=== PATIENT | female | born 1985 | race Caucasian/White ===

== ENCOUNTER 2022-08-17 17:17 | Outpatient (CLI) | payer BC, SELFPAY ==
[2022-08-17 17:46] VITALS: BP 112/63; PULSE 83
[2022-08-17 18:00] VITALS: BP 112/63; PULSE 96
--- NOTE | 2022-08-17 18:04 | PC.NURSE ---
1800- Spoke with Dr. lamb, rom plus negative. NST reactive. Orders to discharge to home.
== END 2022-08-17 18:04 | disposition home or self-care (01) ==
LOC: ANHOBOP 17:23 → ANHOBPP 17:27
PROVIDERS: PCP Family Medicine; Visit Provider Obstetrics & Gynecology
DX: O41.8X90 Other specified disorders of amniotic fluid and membranes, unspecified trimester, not applicable or unspecified (principal); Z3A.00 Weeks of gestation of pregnancy not specified
CPT/HCPCS: 59025; 84112; 99199

== ENCOUNTER 2022-09-21 10:10 | Outpatient (CLI) | payer BC, SELFPAY ==
[2022-09-21 10:46] LABS: Hematocrit 31.9 % (37.0-47.0); Hemoglobin 9.7 g/dL (12.0-15.0); Mean Corpuscular HGB Conc 30.4 g/dl (32-36); Mean Corpuscular Hemoglobin 23.9 pg (26-34); Mean Corpuscular Volume 78.6 fl (80-100); Mean Platelet Volume 10.4 fl (7.4-10.4); Platelet Count Result 401 k/mm3 (150-375); Red Blood Count 4.06 M/mm3 (4.2-5.4); Red Cell Distribution Width 14.6 % (11.5-14.5); White Blood Count 12.2 K/mm3 (4.5-10.0)
[2022-09-23 16:44] LABS: Rapid Plasma Reagin Non-Reactive (NonReactive)
== END 2022-09-21 10:11 | disposition home or self-care (01) ==
LOC: ANHLAB 10:13
PROVIDERS: PCP Family Medicine; Visit Provider Obstetrics & Gynecology
DX: Z01.818 Encounter for other preprocedural examination (principal)
CPT/HCPCS: 36415; 85027; 86592; 86850; 86900; 86901

== ENCOUNTER 2022-09-23 05:34 | Inpatient (IN) | payer BC, SELFPAY ==
[2022-09-23] VITALS (53 sets, daily range): BP systolic 93–129; BP diastolic 41–91; PULSE 56–130; RESP 13–18; TEMP 36.2–37.1; O2SAT 94–100; BMI 33.9
--- NOTE | 2022-09-23 05:35 | LDADM ---
This patient, Radha Moreau, was admitted to Labor/Delivery/Recovery 120 on 09/23/22 at 05:34. Plans for labor, pain management and were discussed with patient. Patient/family oriented to hospital policies and general routines including ID bracelet, bed and alarms, visiting hours, pain management, procedures, bathroom and other care routines, personal items, smoking policy, room service/diet and guest tray routines, security routines, and visiting hours. Patient/Family are encouraged to report perceived risks to care and to ask questions if they do not understand what they are told or what they should do. See OBIX for further documentation.
[2022-09-23] MEDS: LACTATED RINGERS 1,000 ML 125 ML IV CONT ×2 (06:32→07:20)
--- NOTE | 2022-09-23 07:24 | PM.IMHP ---
H&P: HPI History of Present Illness Date/Time: 09/23/22 07:24 Chief Complaint: Term Narrative: this patient is a 36-year-old multiparous female with a previous delivery who is 39 weeks gestation. She presents for repeat . We agreed to perform . She understands the risk. She understands injuries may occur as result of hospitalization, more surgery, and severe illness. She understands risk of hemorrhage and infection. She denies any nausea, vomiting, fever, chills. She denies any chest pain or shortness of breath Review of Systems Review of Systems: All systems reviewed & are unremarkable except as noted in HPI and below Constitutional: Constitutional: Denies chills, Denies fatigue, Denies fever(s) and Denies weakness Eyes: Eyes: Denies blurry vision, Denies change in vision, Denies loss of peripheral vision, Denies loss of vision, Denies other visual disturbances and Denies eye pain ENT: Denies vertigo, Denies dizziness, Denies hearing loss, Denies mouth pain, Denies nasal obstruction, Denies neck mass and Denies neck pain Cardiovascular: Cardiovascular: Denies chest pain, Denies diaphoresis, Denies syncope, Denies leg edema and Denies dyspnea Respiratory: Respiratory: Denies chest congestion, Denies cough, Denies hemoptysis, Denies dyspnea and Denies wheezing Gastrointestinal: Gastrointestinal: Denies abdominal pain, Denies constipation, Denies diarrhea, Denies nausea and Denies vomiting Genitourinary: Genitourinary: Denies hematuria, Denies change in libido, Denies nocturia, Denies genital lesions, Denies flank pain and Denies urinary urgency Musculoskeletal: Musculoskeletal: Denies abnormal gait, Denies back pain, Denies myalgias, Denies arthralgias, Denies joint swelling, Denies muscle weakness and Denies neck pain Integumentary/Breasts: Skin/Breast: Denies swelling, Denies breast pain, Denies breast mass, Denies dry skin, Denies nipple discharge, Denies unusual bruising and Denies jaundice Neurologic: Denies Neuro-related abnormal movements, Denies Abnormal speech present, Denies abnormal gait, Denies behavioral changes, Denies confusion, Denies vertigo, Denies dizziness, Denies syncope, Denies loss of vision, Denies memory loss, Denies convulsions and Denies weakness Psychiatric: Psychiatric: Denies abnormal sleep pattern, Denies behavioral changes, Denies change in libido, Denies confusion, Denies depression, Denies anhedonia and Denies memory loss Endocrine: Endocrine: Reports no additional endocrine complaints, Denies change in libido and Denies fatigue Hematologic/Lymphatic: Hematologic/Lymphatic: Reports no additional hematologic/lymphatic complaints Allergic/Immunologic: Allergic/Immunologic: Reports no additional allergic/immunologic complaints and Denies wheezing [facility] Family History Family History (Updated 09/17/22 @ 15:39 by Janell Carrasco RN) Mother Sarcoidosis of lung Social History Social History Smoking status: Former smoker Tobacco type: e-cigarettes/vaping Second hand tobacco smoke exposure: No Alcohol intake: current Substance use: never Lack of Transportation: No Lack of Food: Never True Current Housing: I Have Housing Concerned About Future Housing: No Difficulty Paying Gas/Electric Bills: No Difficulty Paying for Meds: No Currently Unemployed: No Education: Don't Know Difficulty w/ Childcare or Family Care: No Spiritual care concerns: No Meds Home Medications and Allergies Home Medications Medication Instructions Recorded Confirmed Type buspirone 7.5 mg tablet See Rx Instructions .Route 02/21/22 09/23/22 Rx .COMPLEX #120 tabs sertraline 100 mg tablet 100 mg PO DAILY #90 tabs 08/07/22 09/23/22 Rx Acid Drug Safety Physician (omeprazole) 20 mg PO DAILY 09/17/22 09/17/22 History Allergies Allergy/AdvReac Type Severity Reaction Status Date / Time No Known Allergies
--- NOTE | 2022-09-23 07:26 | WPDHPUPDATE1 ---
History and Physical Update Update Date/Time: 09/23/22 07:26 History and Physical has been reviewed, including an updated exam of the patient. There are NO changes in the patient's condition. Risks, benefits, and alternatives have been discussed and questions answered. Patient agrees to proceed with procedure.
[2022-09-23] MEDS: ceFAZolin 2 GM/D5W 50 ML 2 GM/50 ML BAG IVPB (07:33)
--- NOTE | 2022-09-23 07:33 | P.PNAN_ITS ---
Anes - Eval Pre Procedure Procedure: Operation Date: 09/23/22 07:30 Proposed Procedures p Repeat Section - Lorna Pichardo MD Date/Time: 09/23/22 07:33 Surgeon: Marino Preop Diagnosis: Previous C/S Pre Op Diagnosis: c/s Patient Data Age: 36 Gender: F Height: 1.65 m Weight: 92.5 kg Last Vital Signs Pulse 91 09/23/22 05:55 BP 127/91 H 09/23/22 05:55 Pulse Ox 98 09/23/22 06:20 O2 Del Method Room Air 09/23/22 06:33 Allergies Allergy/AdvReac Type Severity Reaction Status Date / Time No Known Allergies Allergy Verified 09/17/22 15:44 Home Medications Medication Instructions Recorded Confirmed Type buspirone 7.5 mg tablet See Rx Instructions .Route 02/21/22 09/23/22 Rx .COMPLEX #120 tabs sertraline 100 mg tablet 100 mg PO DAILY #90 tabs 08/07/22 09/23/22 Rx Acid Duplicating Machine Mechanic (omeprazole) 20 mg PO DAILY 09/17/22 09/17/22 History Patient hx anesthesia problems: none Family hx anesthesia problems: none Results Review: All pre-operative results and documents have been reviewed as part of the pre- operative evaluation. [facility], [facility] Family History Family History Mother Sarcoidosis of lung Social History Social History Smoking status: Former smoker Tobacco type: e-cigarettes/vaping Second hand tobacco smoke exposure: No Alcohol intake: current Substance use: never Lack of Transportation: No Lack of Food: Never True Current Housing: I Have Housing Concerned About Future Housing: No Difficulty Paying Gas/Electric Bills: No Difficulty Paying for Meds: No Currently Unemployed: No Education: Don't Know Difficulty w/ Childcare or Family Care: No Spiritual care concerns: No Exam Day of Procedure 09/23/22 07:33 Patient weight: normal Heart: regular rate and rhythm Lungs: clear to auscultation and normal air movement Airway: Mallampati scale class II Neurological: alert and oriented
[2022-09-23] MEDS: KETOROLAC 30 MG/ML VIAL (*BKC) IM (08:25)
--- NOTE | 2022-09-23 08:30 | W.PM.PROC2 ---
Procedure Note - Detailed Date of Procedure 09/23/22 Pre-op Diagnosis previous c/s Post-op Diagnosis Same Procedure Performed Low-transverse section Surgeon Lorna Pichardo MD Anesthesia Spinal Findings Normal gestational maternal anatomy, average size infant, normal Apgars. Description of Procedure The patient was taken the operating room. She was prepped and draped in dorsal supine position with a leftward tilt. This was done after spinal anesthetic was applied. A low-transverse skin incision was made and carried down till of the fascia with the knife. The fascial incision was made with the knife. The fascial incision was extended laterally with Tello scissors. The fascia was tented upward superiorly and inferiorly the rectus muscles were dissected off bluntly. The rectus muscles were the midline. The preperitoneal fat and peritoneum were dissected open bluntly at the superior aspect of the rectus muscles. The peritoneal incision was extended superior and inferior with good position of bladder. The uterine incision was made with a scalpel down to the level of the amniotic cavity. The amniotic cavity was entered bluntly. The was delivered. The cord was clamped and cut and the infant was handed off to waiting pediatric staff. Cord bloods were obtained. The placenta was removed manually. The uterus was exteriorized. The uterus was cleared of all clots, debris and membranes. The uterus was closed in 0 Vicryl running lock fashion. An imbricating over a was placed along the incision line as well. The uterus was returned to the abdomen. The gutters were cleared of all clots and debris. The fascia was closed with 0 Vicryl running fashion. The subcutaneous tissue was irrigated pinpoint bleeders were cauterized. The skin was closed with subcuticular absorbable gurpreet. The skin incision line was covered with glue. The patient tolerated the procedure well. She has taken recovery room in stable condition. Sponge lap and needle counts were correct x2. Complications No immediate complications Condition Stable Disposition PACU
[2022-09-23] MEDS: LACTATED RINGERS 1,000 ML 30 ML IV CONT (08:35)
[2022-09-23] MEDS: ONDANSETRON INJ 4 MG/2 ML VIAL IV PUSH ×2 (10:12→17:10)
[2022-09-23] MEDS: OXYTOCIN 30 UNITS/NS 500 ML 30 UNITS/500 ML BAG 125 UNITS IV CONT (10:19)
[2022-09-23] MEDS: fentaNYL CITRATE INJ (*CRX) 100 MCG/2 ML VIAL 50 MCG IV PUSH (12:17)
[2022-09-23] MEDS: SERTRALINE HCL 50 MG TABLET 100 MG PO (14:54)
[2022-09-23] MEDS: PANTOPRAZOLE 40 MG TABLET PO (14:55)
[2022-09-23] MEDS: DOCUSATE SODIUM 100 MG CAPSULE PO (14:55)
[2022-09-23] MEDS: LANOLIN (LANSINOH) 7.5 GM CREAM 1 APPLIC TOPICAL (14:56)
[2022-09-23] MEDS: MULTIVIT/MIN/PREN/FOL AC/IRON TABLET 1 TAB PO (14:56)
[2022-09-23] MEDS: KETOROLAC 30 MG/ML VIAL (*BKC) IV PUSH (15:05)
[2022-09-23] MEDS: DEXTROSE 5%/0.45% SOD CHL 1,000 ML 125 ML IV CONT (15:09)
[2022-09-23] MEDS: HYDROcodone/acetaminophen (*CRX) 5-325 MG TABLET 1 TAB PO (21:59)
[2022-09-23] MEDS: KCL 20 MEQ/D5/0.45% SOD CHL 1,000 ML 125 ML IV CONT (22:01)
[2022-09-24] MEDS: IBUPROFEN 600 MG TABLET PO ×4 (00:26→19:53)
[2022-09-24] MEDS: HYDROcodone/acetaminophen (*CRX) 5-325 MG TABLET 1 TAB PO ×3 (00:27→07:54)
[2022-09-24 04:38] VITALS: BP 115/71; PULSE 75; RESP 18; TEMP 36.7; O2SAT 99
[2022-09-24 04:54] LABS: Basophils Absolute Auto 0.1 K/mm3 (0.0-0.1); Basophils Percent Auto 0.4 % (0.2-1.2); Eosinophils Absolute Auto 0.1 K/mm3 (0-0.3); Eosinophils Percent Auto 0.5 % (0-4.4); Hematocrit 26.3 % (37.0-47.0); Immature Granulocyte Absolute 0.14 K/mm3 (0.00-0.031); Immature Granulocyte Percent A 1.1 % (0-0.5); Lymphocytes Absolute Auto 2.97 K/mm3 (0.9-3.2); Lymphocytes Percent Auto 22.5 % (18.3-44.2); Mean Corpuscular HGB Conc 30.4 g/dl (32-36); Mean Corpuscular Volume 78.7 fl (80-100); Mean Platelet Volume 10.2 fl (7.4-10.4); Monocytes Absolute Auto 0.8 K/mm3 (0.1-0.6); Monocytes Percent Auto 6.2 % (2.6-8.5); Neutrophils Absolute Auto 9.1 K/mm3 (1.3-6.7); Neutrophils Percent Auto 69.3 % (45.5-73.1); Platelet Count Result 359 k/mm3 (150-375); Red Blood Count 3.34 M/mm3 (4.2-5.4); Red Cell Distribution Width 14.6 % (11.5-14.5); White Blood Count 13.2 K/mm3 (4.5-10.0)
[2022-09-24 07:55] VITALS: BP 100/55; PULSE 76; RESP 16; TEMP 36.6; O2SAT 99
[2022-09-24] MEDS: SIMETHICONE 80 MG TAB.CHEW PO ×6 (07:55→23:14)
[2022-09-24] MEDS: TETANUS,DIPHTHERIA,AC PERTUSSIS ADULT (0.5 ML) BOOSTRIX IM (07:55)
--- NOTE | 2022-09-24 08:55 | PM.OBPNVD ---
OB - PN: Subj Subjective Date/time seen: 09/24/22 08:55 Patient comments: no complaints, pain well controlled, tolerating diet and flatus present OB - PN: Obj Data Labs 09/24/22 04:38 Labs: Laboratory Results - last 24 hr 09/24/22 04:38 WBC 13.2 H RBC 3.34 L Hgb 8.0 L Hct 26.3 L MCV 78.7 L MCH 24.0 L MCHC 30.4 L RDW 14.6 H Plt Count 359 MPV 10.2 Immature Gran % (Auto) 1.1 H Neut % (Auto) 69.3 Lymph % (Auto) 22.5 [place] % (Auto) 6.2 Eos % (Auto) 0.5 Baso % (Auto) 0.4 Lymph # (Auto) 2.97 [place] # (Auto) 0.8 H Eos # (Auto) 0.1 Baso # (Auto) 0.1 Abs Immat Gran (auto) 0.14 H Absolute Neuts (auto) 9.1 H Absolute Nucleated RBC 0.0 Nucleated RBC % 0.0 OB - PN A/P Plan day: 1 Comments: Post Op LTCS - no problems, routine recovery Time Spent With Patient Time: Total time spent is greater than 50% in coordination of care (as documented) at patient's floor/unit and/or counseling patient: Exam Const: General: cooperative, healthy appearing, comfortable and no acute distress Resp: Auscultation: no crackles, no rales, no rhonchi and no wheezes Cardio: Rhythm: regular rhythm Heart sounds: no click and no murmurs GI: Inspection: non-distended Auscultation: normal bowel sounds Extrem: General: normal to inspection, no pedal edema and no calf tenderness
[2022-09-24] MEDS: DOCUSATE SODIUM 100 MG CAPSULE PO ×2 (09:29→16:45)
[2022-09-24] MEDS: SERTRALINE HCL 50 MG TABLET 100 MG PO (09:29)
[2022-09-24] MEDS: busPIRone HCL 10 MG TABLET PO (09:29)
[2022-09-24] MEDS: busPIRone HCL 5 MG TABLET PO (09:29)
[2022-09-24] MEDS: MULTIVIT/MIN/PREN/FOL AC/IRON TABLET 1 TAB PO (09:29)
[2022-09-24] MEDS: POLYSACCHARIDE IRON COMPLEX 150 MG CAPSULE PO ×2 (09:29→16:45)
[2022-09-24] MEDS: PANTOPRAZOLE 40 MG TABLET PO (09:30)
[2022-09-24] MEDS: HYDROcodone/acetaminophen (*CRX) 10-325 MG TABLET 1 TAB PO ×5 (10:48→23:14)
--- NOTE | 2022-09-24 13:25 | WPDANLDNPN2 ---
Anes-Prog Note L&D-Neuraxial Date/Time: 09/24/22 13:25 Neuraxial medications: intrathecal PF morphine Opiod-related complaints: none Patient feedback: Patient satisfied with post-operative pain management.
--- NOTE | 2022-09-24 13:25 | WPDANLDPN2 ---
Anes-Prog Note L&D Date/Time: 09/24/22 13:25 Comfortable throughout: section Neuraxial method: spinal Epidural/Spinal procedure site: clean & non-tender Neuro status: Neuro function grossly intact. Cardiovascular status: normal Respiratory status: normal Airway patency: baseline Mental status: baseline Post-Op hydration status: normal Vital Signs: Last Vital Signs Temp 36.6 C 09/24/22 07:55 Pulse 76 09/24/22 07:55 Resp 16 09/24/22 07:55 BP 100/55 L 09/24/22 07:55 Pulse Ox 99 09/24/22 07:55 O2 Del Method Room Air 09/23/22 17:20 Pain score (VAS): 3/10 I/O: Intake & Output 09/23/22 09/24/22 09/24/22 23:59 07:59 15:59 Intake Total 1180 2525 Output Total 200 2450 450 Balance 980 75 -450 Post-procedural complaints: none Patient feedback: Patient satisfied with anesthetic care.
--- NOTE | 2022-09-24 20:00 | PC.NURSE ---
Patient instructed to view the discharge video Mother & Baby Care, The First Two Weeks . Patient was given the opportunity and encouraged to ask questions. Patient verbalized understanding of information shared and has been given the mother/baby guide for home reference.
[2022-09-24 20:14] VITALS: BP 123/63; PULSE 83; RESP 18; TEMP 36.9; O2SAT 97
[2022-09-25] MEDS: HYDROcodone/acetaminophen (*CRX) 10-325 MG TABLET 1 TAB PO ×2 (03:39→07:30)
[2022-09-25] MEDS: SIMETHICONE 80 MG TAB.CHEW PO ×2 (03:39→07:32)
[2022-09-25] MEDS: IBUPROFEN 600 MG TABLET PO (03:40)
--- NOTE | 2022-09-25 07:19 | PM.OBPNVD ---
OB - PN: Subj Subjective Date/time seen: 09/25/22 07:19 s/p section day 2, doing well OB - PN: Obj Data Labs 09/24/22 04:38 OB - PN A/P Plan day: 2 Plan: routine care and discharge home Time Spent With Patient Time: Total time spent is greater than 50% in coordination of care (as documented) at patient's floor/unit and/or counseling patient: Review of Systems Review of Systems: All systems reviewed & are unremarkable except as noted in HPI and below Exam Narrative: incision CDI
--- NOTE | 2022-09-25 07:21 | PM.OBDSVD ---
DS: Admitting Diagnosis Discharge Date 09/25/22 Admitting Diagnosis rpt DS: Discharge Diagnosis Discharge Diagnosis (1) delivery delivered: Code(s): O82 - Encounter for delivery without indication Status: Acute OB - DS: Summary OB Procedures : None OB Procedures Intrapartum: OB Procedures: : None Peripartum Data Procedures: Procedures Operation Date: 09/23/22 07:30 Actual Procedure Side Surgeon p Section Lorna Pichardo MD Time Spent with Patient Time attestation: Total time spent providing and/or coordinating discharge services: Discharge Plan Discharge Attending physician on discharge: Lorna Pichardo Discharging Clinician: Shruthi Kuo Patient Disposition: Home, Self-Care Activity: pelvic rest Diet: regular Patient Instructions: Antibiotic Form Stand Alone Forms: General Discharge Information Follow-up/Referrals: Lorna Pichardo MD [Physician] - 1 Week Discharge Medications: New hydrocodone-acetaminophen 5-325 mg Tablet 1 tablet PO Q3H PRN (Reason: Moderate Pain (4-6)) Qty: 30 0RF Continued buspirone 7.5 mg tablet See Rx Instructions .ROUTE .COMPLEX Qty: 120 3RF Dose Instruction: TAKE 2 TABLETS BY MOUTH EVERY MORNING AND 2 TABLETS AT NIGHT Rx Instructions: TAKE 2 TABLETS BY MOUTH EVERY MORNING AND 2 TABLETS AT NIGHT sertraline 100 mg tablet 100 mg PO DAILY Qty: 90 1RF Discontinued Acid Operations And Maintenance Technican (omeprazole) 20 mg PO DAILY Date of admission: 09/23/22 05:34 Primary Care Provider: Ramses Harp Admitting Provider: Lorna Pichardo Attending physician on admission: Lorna Pichardo Condition: Stable
[2022-09-25] MEDS: MULTIVIT/MIN/PREN/FOL AC/IRON TABLET 1 TAB PO (07:41)
[2022-09-25] MEDS: DOCUSATE SODIUM 100 MG CAPSULE PO (07:41)
[2022-09-25] MEDS: POLYSACCHARIDE IRON COMPLEX 150 MG CAPSULE PO (07:41)
[2022-09-25] MEDS: SERTRALINE HCL 50 MG TABLET 100 MG PO (07:41)
[2022-09-25] MEDS: busPIRone HCL 5 MG TABLET PO (07:42)
[2022-09-25] MEDS: PANTOPRAZOLE 40 MG TABLET PO (07:42)
[2022-09-25] MEDS: busPIRone HCL 10 MG TABLET PO (07:42)
--- NOTE | 2022-09-25 07:50 | PC.NURSE ---
PP assessment performed with student nurse.
[2022-09-25 08:09] VITALS: BP 123/59; PULSE 81; RESP 16; TEMP 37.4; O2SAT 97
--- NOTE | 2022-09-25 08:31 | PC.NURSE ---
On 09/25/22, the student, Jose Lion, provided care and completed [facility] documentation on this patient. I have reviewed the student's documentation and agree with the findings.
--- NOTE | 2022-09-25 14:12 | PC.NURSE ---
[id number] Introductions were made, then consulted with patient to assess needs related to . Mother led the conversation with her?plans to feed?her infant breast and bottle for better [facility] benefits and the?experience so far. Resources provided for inpatient and outpatient services with the mom/baby guide. Mother voiced understanding of information and requests assistance with some questions she has. Mother states her left nipple is inverted and she has been pumping that side. She states her right nipple is sore but is not receptive to an assessment or assistance with . Mother believes her latches good sometimes and other times it is pinchy . We reviewed the education of good positioning, optimal latching with big, open wide gape, signs of swallowing, how to detach if it is painful and how to protect the milk supply with consistent pumping every 3 hours 1-2 times at night. Mother declines working with professional employer consultant as her just had a bottle of formula one hour ago (fifth one since last night) and she believed infant was not hungry at this time. mother is ready to go home. Mother continued the conversation with her plan to feed her at home. Mother is feeding appropriately for growth of and understands stimulating infant to eat if needed. Infant has had appropriate feedings in the last 24 hours meets the outcomes for weight, output and jaundice at this time. Reinforced understanding of milk production, transition of milk, signs of adequate intake, transition of stool, prevention/relief of engorgement, responsive watching for feeding cues, the different methods of stimulating infant to breastfeed 2-3 hours after the start of the last feeding, community resources, medication information reviewed per [facility] and when to call a provider using the resource of the mom and baby guide/[facility] website. Mother voiced understanding of the education shared. Reported to the primary RN.
[2022-09-26 10:35] VITALS: BP 117/66; PULSE 83; RESP 20; TEMP 37.4; O2SAT 98
== END 2022-09-25 09:40 | disposition home or self-care (01) | DRG 788 ==
LOC: ANHLDR 05:36 → ANHOB2 11:04
PROVIDERS: Admitting Provider Obstetrics & Gynecology; PCP Family Medicine; Visit Provider Obstetrics & Gynecology
PROC: 10D00Z1 Extraction of Products of Conception, Low, Open Approach (ICD-10-PCS; CPT 59514; principal; 2022-09-23 07:30)
DX: O34.211 Maternal care for low transverse scar from previous cesarean delivery (principal); Z37.0 Single live birth; Z3A.39 39 weeks gestation of pregnancy; P96.83 Meconium staining
CPT/HCPCS: 36415; 85025; 90715; A9270; J0690; J1885; J2274; J2405; J2590; J3010; J3480; J7120

== ENCOUNTER 2023-07-24 08:40 | Emergency (ER) | payer BC, SELFPAY ==
[2023-07-24 08:45] VITALS: BP 116/77; PULSE 77; RESP 16; TEMP 37.1; O2SAT 98
--- NOTE | 2023-07-24 09:04 | ED.FEMALEGU ---
HPI - Female Genitourinary General Chief complaint: Urogenital-Female Stated complaint: Urinary Problem Time Seen by Provider: 07/24/23 09:15 Source: patient, RN notes reviewed and old records reviewed Mode of arrival: ambulatory Limitations: no limitations History of Present Illness HPI Narrative: 37-year-old female presents to the [facility] with complaints urinary issues. States that a couple of days ago she has had some burning, frequency, urgency, unable to empty her bladder. States today she developed some lower back pain. No treatment prior to arrival. Denies any abdominal pain, chest pain, shortness of breath. Denies any fevers. Denies any chances of . Denies any chances of STDs Onset (ago): day(s) (2-3) Related Data Allergies Allergy/AdvReac Type Severity Reaction Status Date / Time No Known Allergies Allergy Verified 11/05/22 13:37 Review of Systems Review of Systems: All systems reviewed & are unremarkable except as noted in HPI and below Constitutional: Constitutional: Reports no additional constitutional complaints Eyes: Eyes: Reports no additional eye complaints ENT: Reports system reviewed and no additional complaints, except as documented Cardiovascular: Cardiovascular: Reports no additional cardiovascular complaints, Denies chest pain and Denies dyspnea Respiratory: Respiratory: Reports no additional respiratory complaints, Denies chest congestion, Denies cough and Denies dyspnea Gastrointestinal: Gastrointestinal: Reports no additional gastrointestinal complaints, Denies abdominal pain, Denies nausea and Denies vomiting Genitourinary: Genitourinary: Reports as per HPI and Reports dysuria Musculoskeletal: Musculoskeletal: Reports no additional musculoskeletal complaints Integumentary/Breasts: Skin/Breast: Reports system reviewed and no additional complaints, except as docu Neurologic: Reports system reviewed and no additional complaints, except as documented Psychiatric: Psychiatric: Reports no additional psychiatric complaints Allergic/Immunologic: Allergic/Immunologic: Reports no additional allergic/immunologic complaints [facility] Family History Family History Mother Sarcoidosis of lung Social History Social History Smoking status: Former smoker Tobacco type: e-cigarettes/vaping Second hand tobacco smoke exposure: No Alcohol intake: current Substance use: never Lack of Transportation: No Lack of Food: Never True Current Housing: I Have Housing Concerned About Future Housing: No Difficulty Paying Gas/Electric Bills: No Difficulty Paying for Meds: No Currently Unemployed: No Education: Don't Know Difficulty w/ Childcare or Family Care: No Spiritual care concerns: No Comments At the time of my signature, I reviewed and agree with the nursing past medical, surgical, social, and family history. There is no relevant family history pertinent to the patient complaint. Exam Const: General: cooperative, healthy appearing, comfortable, no acute distress, well developed, alert and well nourished Nutritional Appearance: well nourished Orientation/consciousness: patient oriented x3 Limitations: no limitations HENMT: Head: normal to inspection Ears: hearing grossly normal bilaterally and external ears normal Face/Nose/Sinus: Normal external nose present, Normal nares present, Normal nasal mucous membranes and turbinates present, normal facial exam and face symmetric Face and sinus: normal facial exam and face symmetric Mouth: Yes moist mucous membranes Eyes: General: appearance normal, both eyes and all related structures Alignment and Position: alignment normal Periorbital: periorbital findings normal Pupils: Equal, round and reactive pupils present EOM: EOMs intact bilaterally Neck: Neck: normal visual inspection, full ROM, no lymphadenopathy an
== END 2023-07-24 09:25 | disposition home or self-care (01) ==
PROVIDERS: Emergency Provider Nurse Practitioner; PCP Physician Assistant
DX: N30.01 Acute cystitis with hematuria (principal); Z87.891 Personal history of nicotine dependence
CPT/HCPCS: 81003; 87077; 87086; 87186; 99213; G0463

== ENCOUNTER 2023-10-20 08:28 | Emergency (ER) | payer BC, SELFPAY ==
[2023-10-20 08:34] VITALS: BP 111/59; PULSE 77; RESP 20; TEMP 36.5; O2SAT 100
--- NOTE | 2023-10-20 08:55 | ED.FEMALEGU ---
HPI - Female Genitourinary General Chief complaint: Urogenital-Female Stated complaint: Urinary Problem Time Seen by Provider: 10/20/23 08:46 Source: patient and RN notes reviewed Mode of arrival: ambulatory Limitations: no limitations History of Present Illness HPI Narrative: Patient presents today complaining of urinary frequency, urgency, and lower abdominal pressure since last night. Denies dysuria, hematuria, fever, or any additional symptoms. She has taken a dose of azo prior to arrival with some relief. No recent antibiotic use. Related Data Allergies Allergy/AdvReac Type Severity Reaction Status Date / Time No Known Allergies Allergy Verified 11/05/22 13:37 Review of Systems Review of Systems: CONSTITUTIONAL: Denies body aches, fever, chills, or sweats. EYES: Denies visual changes, redness, or discharge. ENT: Denies rhinorrhea, congestion, sore throat, or otalgia. CARDIOVASCULAR: Denies chest pain, palpitations, or edema. RESPIRATORY: Denies cough or dyspnea. GASTROINTESTINAL: Denies abdominal pain, nausea, vomiting, or diarrhea. GENITOURINARY: Denies dysuria or hematuria.+ frequency, urgency, lower abdominal pressure SKIN: Denies rash, itching, or wounds. MUSCULOSKELETAL: Denies back pain, joint pain, or myalgia. NEUROLOGIC: Denies headache, numbness, tingling, or weakness. PSYCH: Denies depression or anxiety. [facility] Family History Family History Mother Sarcoidosis of lung Social History Social History Smoking status: Former smoker Tobacco type: e-cigarettes/vaping Second hand tobacco smoke exposure: No Alcohol intake: current Substance use: never Lack of Transportation: No Lack of Food: Never True Current Housing: I Have Housing Concerned About Future Housing: No Difficulty Paying Gas/Electric Bills: No Difficulty Paying for Meds: No Currently Unemployed: No Education: Don't Know Difficulty w/ Childcare or Family Care: No Spiritual care concerns: No Comments At time of signature, I have reviewed and agree with nursing past medical, surgical, social and family history unless otherwise noted. Please see nursing chart for further information. There is no relevant family history pertinent to the presenting complaint Exam Narrative: GENERAL: Well-appearing, well-nourished, and in no acute distress. HEAD: Normocephalic, atraumatic. EYES: EOMI. No redness or drainage. Conjunctivae normal. ENT: Mucous membranes pink and moist. NECK: Normal AROM. Supple. No lymphadenopathy. CHEST: No respiratory distress. Clear to auscultation. HEART: Regular rate and rhythm. No murmur appreciated. ABDOMEN: Soft, nontender, nondistended, normal active bowel sounds. MUSCULOSKELETAL: No bony tenderness. EXTREMITIES: Normal range of motion. No edema. SKIN: Warm, dry, no rash. Capillary refill normal. NEURO: No focal deficits. Alert and oriented x3. Gait steady. PSYCH: Normal affect. No signs of depression or anxiety. Course Course Level of Care: Express Care Visit Vital Signs Vital signs: Vital Signs Temperature 97.7 F 10/20/23 08:34 Pulse Rate 77 10/20/23 08:34 Respiratory Rate 20 10/20/23 08:34 Blood Pressure 111/59 L 10/20/23 08:34 Pulse Oximetry 100 10/20/23 08:34 Oxygen Delivery Room Air 10/20/23 08:34 Temperature 97.7 F 10/20/23 08:34 Pulse Rate 77 10/20/23 08:34 Respiratory Rate 20 10/20/23 08:34 Blood Pressure 111/59 L 10/20/23 08:34 Pulse Oximetry 100 10/20/23 08:34 Oxygen Delivery Room Air 10/20/23 08:34 Reviewed MDM - Female Genitourinary MDM Narrative Medical decision making narrative: Urinalysis is consistent with UTI. Prescription for Keflex sent to pharmacy. Culture pending. Anticipatory guidance given. Differential Diagnosis Differential diagnosis: Likely urinary tract infectio
== END 2023-10-20 09:02 | disposition home or self-care (01) ==
PROVIDERS: Emergency Provider Nurse Practitioner; PCP Physician Assistant
DX: N30.01 Acute cystitis with hematuria (principal); B96.89 Other specified bacterial agents as the cause of diseases classified elsewhere
CPT/HCPCS: 81003; 87077; 87086; 87088; 87186; 99213; G0463

== ENCOUNTER 2023-11-21 09:35 | Outpatient (CLI) | payer BC, SELFPAY ==
[2023-11-21 12:41] LABS: Basophils Absolute Auto 0.1 K/mm3 (0.0-0.1); Basophils Percent Auto 0.7 % (0.2-1.2); Eosinophils Absolute Auto 0.1 K/mm3 (0-0.3); Eosinophils Percent Auto 1.4 % (0-4.4); Hematocrit 33.5 % (37.0-47.0); Hemoglobin 9.2 g/dL (12.0-15.0); Immature Granulocyte Absolute 0.04 K/mm3 (0.00-0.031); Immature Granulocyte Percent A 0.5 % (0-0.5); Lymphocytes Absolute Auto 2.42 K/mm3 (0.9-3.2); Lymphocytes Percent Auto 27.6 % (18.3-44.2); Mean Corpuscular HGB Conc 27.5 g/dl (32-36); Mean Corpuscular Hemoglobin 20.2 pg (26-34); Mean Corpuscular Volume 73.6 fl (80-100); Mean Platelet Volume 10.1 fl (7.4-10.4); Monocytes Absolute Auto 0.5 K/mm3 (0.1-0.6); Monocytes Percent Auto 6.1 % (2.6-8.5); Neutrophils Absolute Auto 5.6 K/mm3 (1.3-6.7); Neutrophils Percent Auto 63.7 % (45.5-73.1); Platelet Count Result 478 k/mm3 (150-375); Red Blood Count 4.55 M/mm3 (4.2-5.4); Red Cell Distribution Width 16.8 % (11.5-14.5); White Blood Count 8.8 K/mm3 (4.5-10.0)
[2023-11-21 12:55] LABS: Alanine Aminotransferase 41 U/L (6-35); Albumin Level 4.5 g/dL (3.5-5.1); Alkaline Phosphatase 181 U/L (38-126); Anion Gap 7 mmol/L (4-12); Aspartate Amino Transferase 37 U/L (14-36); Bilirubin,Total 0.4 mg/dL (0.2-1.3); Blood Urea Nitrogen 10 mg/dL (7-17); Calcium 9.4 mg/dL (8.4-10.2); Carbon Dioxide 25 mmol/L (22-30); Chloride 106 mmol/L (98-107); Cholesterol 233 mg/dL (0-200); Estimated Glomerular Filt Rate > 60; Glucose 95 mg/dL (65-110); HDL Direct 42 mg/dL; Sodium 138 mmol/L (137-145); Triglycerides 265 mg/dL (<150)
[2023-11-21 13:06] LABS: LDL Cholesterol Direct 151 mg/dL
[2023-11-21 13:31] LABS: Anisocytosis 1+; Hypochromasia 1+; Platelet Estimate Increased (Adequate); Schistocytes None Seen
[2023-11-21 14:37] LABS: Vitamin D 25 Hydroxy 17.9 ng/mL
[2023-11-21 16:05] LABS: Iron 45 ug/dL (37-170)
[2023-11-21 16:14] LABS: Percent Iron Saturation 9 % (20-50)
== END 2023-11-21 09:36 | disposition home or self-care (01) ==
LOC: ANHGOSHLAB 09:36
PROVIDERS: PCP Family Medicine; Visit Provider Nurse Practitioner Family
DX: F41.1 Generalized anxiety disorder (principal); R53.83 Other fatigue; E53.8 Deficiency of other specified B group vitamins; E55.9 Vitamin D deficiency, unspecified; E66.9 Obesity, unspecified; D64.9 Anemia, unspecified
CPT/HCPCS: 36415; 80053; 80061; 82306; 82607; 83540; 83550; 84443; 85025; 86038

== ENCOUNTER 2023-12-11 08:43 | Outpatient (CLI) | payer BC, SELFPAY ==
[2023-12-23 17:49] VITALS: BMI 28.3
--- NOTE | 2023-12-23 17:49 | WPDHOMESLEEP ---
Sleep Study - Home Unattended Date of Study: 12/11/23 Ordering Provider: CAPRICE Estes-Carol Interpreting Provider: Yas Geller, DO Home Sleep Study Type: Watch PAT Height: 1.65 m Weight: 77.111 kg Body Mass Index: 28.3 Neck Circumference (inches): 14 [place]: 14 Reason for Sleep Study Unrefreshing sleep, daytime hypersomnia Sleep History The patient is a 38-year-old female with anemia, anxiety, history of tobacco use and excessive daytime sleepiness that had a sleep study ordered by her primary care for evaluation of sleep apnea. The patient denies awakening from sleep short of breath. She occasionally awakens at night with heartburn, belching or cough. She constantly snores and is frequently loud enough that others complain. She constantly has trouble sleeping when she has a cold. She denies waking up gasping for air throughout the night. She denies having breathing problems at night observed by herself or others. She denies sweating excessively at night. She denies having heart palpitations or irregular heartbeats during the night. She occasionally falls asleep during the day but never while driving. She denies sleep paralysis, cataplexy and hypnagogic / hypnopompic hallucinations. She constantly has trouble at school or work due to sleepiness. She denies feeling afraid of going to sleep. She denies having nightmares. She occasionally remembers her dreams. She frequently has thoughts racing through her mind. She frequently feels sad, depressed and anxious. She occasionally has muscular tension. She rarely notices parts of her body jerk. She occasionally kicks during the night. She constantly has crawling and aching feelings in her legs and occasionally has leg pain during the night. She occasionally grinds her teeth during sleep but never awakens with morning jaw pain. She denies being bothered by pain during the day and denies being awakened by pain during the night. She occasionally wakes up feeling stiff in the morning. She occasionally wakes up with sore or achy muscles. She occasionally wakes up with pain in the neck, spine and other joints. She goes to bed between 8-9 p.m. on both weekdays and weekends. It takes her anywhere from 30 to 120 minutes to fall asleep. She wakes up 3-5 times throughout the night to urinate and adjust position. It can take her anywhere from 5-60 minutes to fall back asleep. She wakes up at 6:00 a.m. on both weekdays and weekends. She typically gets 5-8 hours of sleep per night. She will stay in bed for 15 minutes after waking up in the morning. She currently lives with her cayla and 3 children. She denies consuming any caffeinated beverages within 2 hours of bedtime. She denies engaging in physical exercise before bedtime. She will occasionally read before falling asleep. She will watch television before falling asleep. He will occasionally take naps in the afternoon or the evening but they are not refreshing. She consumes 3 cups of caffeinated beverage per day. She quit smoking cigarettes 3-4 years ago. She denies alcohol and recreational drug use. [facility] Family History Family History Mother Sarcoidosis of lung Social History Social History Smoking status: Former smoker Tobacco type: e-cigarettes/vaping Second hand tobacco smoke exposure: No Alcohol intake: current Substance use: never Lack of Transportation: No Lack of Food: Never True Current Housing: I Have Housing Concerned About Future Housing: No Difficulty Paying Gas/Electric Bills: No Difficulty Paying for Meds: No Currently Unemployed: No Education: Don't Know Difficulty w/ Childcare or Family Care: No Spiritual care concerns: No Medications Home Medications Medication Instructions Recorded Confirmed Type ferrous sulfate 325 mg (65 mg 325 m
== END 2023-12-12 07:30 | disposition home or self-care (01) ==
LOC: ANHCSM 08:44
PROVIDERS: PCP Family Medicine; Visit Provider Nurse Practitioner Family
DX: G47.33 Obstructive sleep apnea (adult) (pediatric) (principal); R53.83 Other fatigue; F39 Unspecified mood [affective] disorder
CPT/HCPCS: 95800